=== PATIENT | male | born 1975 | race Two or more races ===

== ENCOUNTER 2024-01-04 00:03 | Emergency (ER) | payer BC ==
[~2024-01-04] VITALS: Ht 167.6 cm; Wt 72.6 kg
[2024-01-04 01:17] VITALS: TEMP 98.2
[2024-01-04 07:11] VITALS: BP 117/68; O2SAT 99
== END 2024-01-04 07:12 | disposition home or self-care (01) ==
LOC: ER 00:14
DX: F10.129 Alcohol abuse with intoxication, unspecified (principal); Z60.2 Problems related to living alone; Y90.9 Presence of alcohol in blood, level not specified